=== PATIENT | female | born 1995 | race Asian ===

== ENCOUNTER 2019-07-31 11:54 | Emergency (ER) | payer OTHER ==
[2019-07-31] MEDS ORDERED: NS 0.9% 1000 ML** 1,000 ML IV ONE (13:05)
[2019-07-31] MEDS ORDERED: Ketorolac INJ* 30 MG/ML 1 ML VIAL IV PUSH ONE (13:06)
--- NOTE | 2019-07-31 13:17 | ED ---
Influenza-Like Illness - HPI Summary HPI Summary: This pt is a 24 Y/O F presenting to [facility] with a CC of flu like symptoms that began last night at 1900 and are currently rated a 7/10 in severity. She states that she has SOB, nasal congestion, and a productive cough with a sore throat. She denies any fever, chills, CP, and headaches. She states that she also has some chest tightness. She states that when she lays down her symptoms are aggravated. She currently has no alleviating symptoms. She states that she has no pertinent PMHx or FHx. She states that she drinks occasionally and never smokes or does illicit drugs. - History of Current Complaint Chief Complaint: EDFluSymptoms Time Seen by Provider: 07/31/19 13:05 Hx Obtained From: Patient Onset/Duration: Sudden Onset - 1899 last night 07/30/19, Lasting Days - 1, Still Present Severity: Severe - 7/10 Associated Signs & Symptoms: Negative - fever, chills, CP, and headaches, Cough - productive, Sore Throat, Nasal Congestion - Allergy/Home Medications Allergies/Adverse Reactions: Allergies Allergy/AdvReac Type Severity Reaction Status Date / Time cantelope Allergy Hives/Diff. Uncoded 07/31/19 12:03 Breathing/I tching PMH/Surg Hx/FS Hx/Imm Hx Previously Healthy: Yes Endocrine/Hematology History: Denies: Hx Diabetes Cardiovascular History: Denies: Hx Hypertension Respiratory History: Denies: Hx Asthma Sensory History: Reports: Hx Contacts or Glasses Opthamlomology History: Reports: Hx Contacts or Glasses - Surgical History Surgical History: None Infectious Disease History: No Infectious Disease History: Denies: Traveled Outside the [place] in Last 30 Days - Family History Known Family History: Negative: Cardiac Disease, Hypertension, Diabetes - Social History Occupation: Student - [employer] Lives: Dormitory/Roommates Alcohol Use: Occasionally Hx Substance Use: No Substance Use Type: Reports: None Hx Tobacco Use: No Smoking Status (MU): Never Smoked Tobacco Review of Systems Negative: Fever, Chills Positive: Sore Throat, Nasal Discharge Negative: Chest Pain Positive: Shortness Of Breath, Cough - productive Negative: Headache All Other Systems Reviewed And Are Negative: Yes Physical Exam - Summary Physical Exam Summary: VITAL SIGNS: Reviewed. GENERAL: Patient is a well-developed and nourished female who is lying comfortable in the stretcher. Patient is not in any acute respiratory distress. HEAD AND FACE: No signs of trauma. No ecchymosis, hematomas or skull depressions. No sinus tenderness. EYES: PERRLA, EOMI x 2, No injected conjunctiva, no nystagmus. EARS: Hearing grossly intact. Ear canals and tympanic membranes are within normal limits. MOUTH: Oropharynx within normal limits. NECK: Supple, trachea is midline, no adenopathy, no JVD, no carotid bruit, no c- spine tenderness, neck with full ROM CHEST: Symmetric, no tenderness at palpation LUNGS: Clear to auscultation bilaterally. No wheezing or crackles. CVS: Regular rate and rhythm, S1 and S2 present, no murmurs or gallops appreciated. ABDOMEN: Soft, non-tender. No signs of distention. No rebound no guarding, and no masses palpated. Bowel sounds are normal. EXTREMITIES: FROM in all major joints, no edema, no cyanosis or clubbing. NEURO: Alert and oriented x 3. No acute neurological deficits. Speech is normal and follows commands Triage Information Reviewed: Yes Vital Signs On Initial Exam: Initial Vitals Temp Pulse Resp BP Pulse Ox 99 F 78 16 126/91 100 07/31/19 12:00 07/31/19 12:00 07/31/19 12:00 07/31/19 12:00 07/31/19 12:00 Vital Signs Reviewed: Yes Procedures - Sedation Patient Received Moderate/Deep Sedation with Procedure: No Diagnostics - Vital Signs Vital Signs Temp Pulse Resp BP Pulse Ox 07/31/19 12:00 99 F 78 16 126/91 100 - Laboratory Result Diagrams: 07/31/19 13:40 07/31/19 13:40 Lab Statement: Any lab studies that have been ordered have been reviewed, and results considered in the medical decision making process. - Radiology CXR Radiology Interpretation Completed By: Radiologist Summary of Radiographic Findings: No active cardiopulmonary disease is noted. ED physician has reviewed this report. Flu Symptom Course/Dx - Course Assessment/Plan: This patient is a 24-year-old female who presents to the emergency department with a chief complaint of shortness of breath, cough, not feeling well. Blood work without a significant abnormality. Influenza A and B is negative, rapid strep is negative. Chest x-ray impression: No acute pathology. Blood work without any significant abnormality. I believe that the patient has an upper respiratory tract infection. The patient is not hypoxic or tachycardic and it was criteria for being is 0. Therefore have no suspicion for a PE. Therefore the patient will be discharged home with follow-up with primary care physician. I discussed all the findings and test results with the patient. Patient was instructed to return to the emergency room immediately if any of the symptoms return or worsen . Plan of care was discussed with the patient and understands and agrees. All questions were answered at patient satisfaction. There were no further complaints or concerns. Lung exam before discharge: CTA B/L. Good air exchange. No wheezing or crackles heard. CVS: S1 and S2 present. No murmurs appreciated. Patient is alert and oriented x 3. Patient is hemodynamically stable. Patient will be discharged home with follow up nurse chemical dependency in the next 2-3 days - Diagnoses Provider Diagnoses: URI (upper respiratory infection) Discharge ED - Sign-Out/Discharge Documenting (check all that apply): Patient Departure - discharge - Discharge Plan Condition: Stable Disposition: HOME Patient Education Materials: Upper Respiratory Infection (ED) Referrals: [facility] [Outside] - 2 Days Additional Instructions: PLEASE RETURN TO AN EMERGENCY DEPARTMENT FOR ANY NEW OR WORSENING SYMPTOMS. PLEASE FOLLOW UP WITH THE [facility] OUR YOUR LOCAL PRIMARY CARE PROVIDER WHEN YOU RETURN TO [place]. - Billing Disposition and Condition Condition: STABLE Disposition: Home - Attestation Statements Document Initiated by Arie: Yes Documenting Scribe: Jaime Soto Provider For Whom Arie is Documenting (Include Credential): Ayo Newman MD Scribe Attestation: Jaime Galindo scribed for Ayo Newman MD on 07/31/19 at 1837. Scribe Documentation Reviewed: Yes Provider Attestation: The documentation as recorded by the Jaime boo accurately reflects the service I personally performed and the decisions made by , Ayo Newman MD Status of Scribe Document: Viewed
[2019-07-31 13:30] LABS: Rapid Strep Molecular Negative (Negative)
[2019-07-31 13:37] LABS: Influenza A Molecular NEGATIVE (Negative); Influenza B Molecular NEGATIVE (Negative)
[2019-07-31 13:52] LABS: ABS Eosinophils 0.2 10^3/ul (0-0.6); ABS Lymphocytes 1.2 10^3/ul (1.0-4.8); ABS Monocytes 0.4 10^3/ul (0-0.8); ABS Neutrophils 3.4 10^3/ul (1.5-7.7); Eosinophil % 4.6 %; Hematocrit 35 % (35-47); Hemoglobin 11.8 g/dL (12.0-16.0); Lymphocyte % 23.2 %; Mean Corpuscular HGB Conc 33 g/dL (31-36); Mean Corpuscular Hemoglobin 28 pg (27-31); Mean Corpuscular Volume 85 fL (80-97); Mean Platelet Volume 7.7 fL (7.4-10.4); Nucleated Red Blood Cells % 0.1; Platelet Count 210 10^3/uL (150-450); Red Blood Count 4.18 10^6 /uL (3.70-4.87); Red Cell Distribution Width 16 % (10-15); White Blood Count 5.3 10^3/uL (3.5-10.8)
[2019-07-31 14:09] LABS: ALT 9 U/L (7-52); AST 14 U/L (13-39); Albumin 3.9 g/dL (3.2-5.2); Albumin/Globulin Ratio 1.6 (1-3); Alkaline Phosphatase 36 U/L (34-104); Anion Gap 4 mmol/L (2-11); BUN/Creatinine Ratio 22.7 (8-20); Blood Urea Nitrogen 15 mg/dL (6-24); C Reactive Protein < 1.00 mg/L (<8.01); CO2 Carbon Dioxide 26 mmol/L (22-32); Calcium 8.7 mg/dL (8.6-10.3); Chloride 108 mmol/L (101-111); EGFR African American 135.5 (>60); Globulin 2.5 g/dL (2-4); Glucose 87 mg/dL (70-100); Potassium 3.9 mmol/L (3.5-5.0); Sodium 138 mmol/L (135-145); Total Protein 6.4 g/dL (6.4-8.9)
[2019-07-31 14:15] LABS: HCG Pregnancy < 0.60 mIU/mL
[2019-07-31 14:44] VITALS: BP 105/62
[2019-07-31 17:04] LABS: Urine Appearance Clear; Urine Color Straw
[2019-07-31 17:05] LABS: Urine Bilirubin Negative (Negative); Urine Blood Negative (Negative); Urine Ketones Negative (Negative); Urine Nitrite Negative (Negative); Urine Protein Negative (Negative); Urine Specific Gravity 1.015 (1.010-1.030); Urine Urobilinogen Negative (Negative)
[2019-07-31 17:06] LABS: Urine Glucose Negative (Negative)
[2019-07-31 17:21] LABS: Urine Bacteria Absent (Absent); Urine Red Blood Cell Absent (Absent); Urine Squamous Epithelial Cell Present (Absent); Urine White Blood Cell Absent (Absent)
== END 2019-07-31 15:47 | disposition home or self-care (01) ==
LOC: ED 11:54
DX: J06.9 Acute upper respiratory infection, unspecified (principal); R06.02 Shortness of breath; Z91.018 Allergy to other foods
CPT/HCPCS: 36415; 71046; 80053; 81003; 83605; 84702; 85025; 86140; 87651; 96361; 96374; 99282; J1885